=== PATIENT | male | born 1990 | race Caucasian/White ===

== ENCOUNTER 2020-10-16 00:47 | Emergency (ER) | payer SELFPAY ==
[~2020-10-16] VITALS: Ht 180.3 cm; Wt 88.5 kg
[2020-10-16 01:22] VITALS: BP 141/83
== END 2020-10-16 02:32 | disposition home or self-care (01) ==
LOC: ER 00:49
DX: F10.129 Alcohol abuse with intoxication, unspecified (principal); Y90.9 Presence of alcohol in blood, level not specified